=== PATIENT | male | born 1990 | race Two or more races ===

== ENCOUNTER 2018-12-20 16:25 | Emergency (ER) | payer MEDICAID ==
[~2018-12-20] VITALS: Ht 170.2 cm; Wt 68.0 kg
[2018-12-20 16:50] VITALS: BP 137/90
--- NOTE | 2018-12-20 16:50 | NUR ---
ED Nurse Note: pt walked in due to flu like symptoms x 5 days. pt is complaining of 6/10 bodyaches and stated it hets worse at night. seen by derrick hayden. pt is not in acute distress. pt denies coughing. will continue to monitor.
--- NOTE | 2018-12-20 17:15 | Emergency Room Report ---
History of Present Illness General Chief Complaint: Flu Like Symptoms Source: Patient Present Illness HPI 28-year-old male presents emergency department complaining of having fevers, chills, 8/10 in severity body aches and cough 1 week. Patient also is reporting cold sore in the mouth and on his lip. Patient states he has not measured his fevers but he does become very "sweaty" patient denies chest pain he denies recent travel or illness. Patient states he did not receive the flu vaccination this year.Denies CP, Palpitations, LOC, AMS, dizziness, Changes in Vision, Sensation, paresthesias, or a sudden severe headache. Allergies: Coded Allergies: No Known Allergies (Unverified , 12/20/18) Patient History Past Medical History: see triage record Past Surgical History: none Pertinent Family History: none Reviewed Nursing Documentation: PMH: Agreed; PSxH: Agreed Nursing Documentation-PMH Past Medical History: No Stated History Review of Systems All Other Systems: negative except mentioned in HPI Physical Exam Vital Signs Date Time Temp Pulse Resp B/P (MAP) Pulse Ox O2 Delivery O2 Flow Rate FiO2 12/20/18 16:35 98.6 107 20 137/90 (106) 98 Room Air Sp02 EP Interpretation: reviewed, normal General Appearance: no apparent distress, alert, GCS 15, non-toxic Head: normocephalic, atraumatic Eyes: bilateral eye normal inspection, bilateral eye PERRL ENT: hearing grossly normal, normal voice, TMs + canals normal, moist mucus membranes, nasal congestion, pharyngeal erythema, other - no tonsillar swelling or exudates Neck: full range of motion, no meningismus Respiratory: chest non-tender, lungs clear, normal breath sounds, speaking full sentences Cardiovascular #1: regular rate, rhythm Gastrointestinal: normal inspection, non tender, soft Musculoskeletal: back normal, gait/station normal, normal range of motion, non- tender Neurologic: alert, oriented x3, responsive, motor strength/tone normal, sensory intact, normal gait, speech normal, grossly normal Psychiatric: judgement/insight normal Skin: normal color, no rash, warm/dry, well hydrated Lymphatic: no adenopathy Medical Decision Making PA Attestation Dr. drummond is my supervising Physician whom patient management has been discussed with. Diagnostic Impression: Primary Impression: Acute viral syndrome ER Course 28-year-old male presents emergency department complaining of having fevers, chills, 8/10 in severity body aches and cough 1 week. Patient also is reporting cold sore in the mouth and on his lip. Patient states he has not measured his fevers but he does become very "sweaty" patient denies chest pain he denies recent travel or illness. Patient states he did not receive the flu vaccination this year.Denies CP, Palpitations, LOC, AMS, dizziness, Changes in Vision, Sensation, paresthesias, or a sudden severe headache. Ddx considered but are not limited to URI, pneumonia, PE, strep pharyngitis, meningitis, influenza, OM/OE just to name a few. Vital signs: Pt. is afebrile, the remaining VS are WNL H&PE are most consistent with Viral Syndrome suspicious for Influenza will treat clinically - no meningeal signs, Lungs are clear and oropharynx is not involved, no evidence of bacterial infection at this time. ORDERS: none required at this time, the diagnosis is clinical ED INTERVENTIONS: None required at this time. --PT. EDUCATION: --I discussed with this patient that I will be prescribing Tamiflu which is an antiviral. This medication is not always covered by insurance and is not always available at pharmacies. I educated patient that this medication has been shown to reduce symptoms by 1 day, and if unable to obtain there is no alternative, and to continue conservative treatment. DISCHARGE: At this time pt. is stable for d/c to home. Will provide printed patient care instructions, and any necessary prescriptions. Care plan and follow up instructions have been discussed with the patient prior to discharge. Last Vital Signs Date Time Temp Pulse Resp B/P (MAP) Pulse Ox O2 Delivery O2 Flow Rate FiO2 12/20/18 16:35 98.6 107 20 137/90 (106) 98 Room Air Disposition: HOME, SELF-CARE Condition: Stable Scripts Codeine/Promethazine Hcl* (PROMETHAZINE-CODEINE SYRUP*) 118 Ml Syrup 5 ML ORAL Q6H PRN for For Cough, #120 ML 0 Refills Prov: Clarissa Domínguez 12/20/18 Ibuprofen* (MOTRIN*) 600 Mg Tablet 600 MG ORAL THREE TIMES A DAY, #30 TAB 0 Refills Prov: Clarissa Domínguez 12/20/18 Valacyclovir Hcl (VALTREX) 1,000 Mg Tablet 1000 MG PO TID for 7 Days, #21 TAB Prov: Clarissa Domínguez 12/20/18 Patient Instructions: Muscle Pain, Adult Additional Instructions: Take medications as directed. Follow up with a Primary Care Provider in 3-5 days, even if your symptoms have resolved. --Please review list of primary care clinics, if you do not already have a primary care provider Return sooner to ED if new symptoms occur, or current symptoms become worse. Do not drink alcohol, drive, or operate heavy machinery while taking Cough Syrup as this may cause drowsiness. - Please note that this Emergency Department Report was dictated using [employer] librarian technology software, occasionally this can lead to erroneous entry secondary to interpretation by the dictation equipment. Clarissa Domínguez December 20, 2018 17:15
[2018-12-20] MEDS ORDERED: PROMETHAZINE-C118 M1 ORAL (17:16)
[2018-12-20] MEDS ORDERED: VALTREX1000 MG PO (17:16)
[2018-12-20] MEDS ORDERED: IBUPROFEN600 MG ORAL (17:16)
--- NOTE | 2018-12-20 17:20 | NUR ---
ER DISCHARGE NOTE: Patient is cleared to be discharged per ERMD, pt is aox4, on room air, with stable vital signs. pt was given dc and prescription instructions, pt was able to verbalize understanding, pt id band removed without complications. pt is able to ambulate with steady gait. pt took all belongings.
== END 2018-12-20 17:20 | disposition home or self-care (01) ==
LOC: EMR 16:50
DX: B34.9 Viral infection, unspecified (principal); B00.1 Herpesviral vesicular dermatitis
CPT/HCPCS: 99282